=== PATIENT | female | born 1995 | race African-American/Black ===

== ENCOUNTER 2018-05-03 17:54 | Emergency (ER) | payer OTHER, SELFPAY ==
[2018-05-03] MEDS ORDERED: Acetaminophen 500 MG TAB ONE (18:31)
[2018-05-03] MEDS ORDERED: Benzonatate 100 MG CAP ONE (19:39)
== END 2018-05-03 19:40 | disposition home or self-care (01) ==
LOC: BURERS 17:54
DX: J06.9 Acute upper respiratory infection, unspecified (principal); F41.9 Anxiety disorder, unspecified; F32.9 Major depressive disorder, single episode, unspecified; F17.210 Nicotine dependence, cigarettes, uncomplicated; J45.909 Unspecified asthma, uncomplicated; K21.9 Gastro-esophageal reflux disease without esophagitis
CPT/HCPCS: 87804; 99283